=== PATIENT | male | born 1990 | race Caucasian/White ===

== ENCOUNTER 2020-10-03 16:02 | Emergency (ER) | payer OTHER ==
[2020-10-03] MEDS ORDERED: BACTRIM DS TAB1 EACH PO (18:47)
[2020-10-03] MEDS ORDERED: CEPHALEXIN500 MG PO (18:47)
== END 2020-10-03 19:02 | disposition home or self-care (01) ==
LOC: FER 16:02
DX: L02.413 Cutaneous abscess of right upper limb (principal); L73.9 Follicular disorder, unspecified; F17.200 Nicotine dependence, unspecified, uncomplicated
CPT/HCPCS: 87070; 87077; 87186; 87205